=== PATIENT | male | born 1945 | race Caucasian/White ===

== ENCOUNTER 2017-09-04 13:32 | Observation (INO) | payer MEDICARE ==
[2017-09-04 13:58] LABS: #Eosinphils 0.2 thou/uL (0.0-0.7); #Lymphocytes 2.9 thou/uL (1.20-3.40); #Monocytes 0.7 thou/uL (0.11-0.59); #Neutrophils 4.7 thou/uL (1.40-6.50); %Basophils 0.3 % (0.0-1.0); %Eosinophils 2.3 % (0.0-10.0); %Lymphocytes 33.9 % (21.0-51.0); %Neutrophils 55.4 % (42.0-75.0); Hemoglobin 14.1 g/dL (14.0-18.0); Mean Corpuscular HGB CONC 33.7 g/dL (32.0-36.0); Mean Corpuscular Hemoglobin 29.1 pg (27.0-31.0); Mean Corpuscular Volume 86.4 fl (80.0-94.0); Mean Platelet Volume 6.6 fL (7.4-10.4); Platelet Count 285 thou/uL (130-400); RBC Distribution Width 13.2 % (11.5-14.5); Red Blood Cell (RBC) Count 4.83 mill/uL (4.70-6.10); White Blood Cell (WBC) Count 8.4 thou/uL (4.8-10.8)
--- NOTE | 2017-09-04 14:14 | RAD ---
CHEST 1 VIEW: Date: 09/04/17 HISTORY: Chest pain. COMPARISON: Chest 1 view dated 12/22/13. FINDINGS: Lungs are clear. No pneumothorax or effusion. Cardiac silhouette and mediastinal contours within norm al limits. No acute osseous abnormality. IMPRESSION: No acute intrathoracic abnormality. POS: GUICHO
[2017-09-04 14:20] LABS: ALT (SGPT) 41 U/L (8-55); AST (SGOT) 37 U/L (5-34); Albumin 4.7 g/dL (3.4-4.8); Alkaline Phosphatase 79 U/L (40-150); Anion Gap 13 mmol/L (10-20); BUN (Urea Nitrogen) 20 mg/dL (8.4-25.7); Bilirubin, Total 0.5 mg/dL (0.2-1.2); CK (CPK) 78 U/L (30-200); Calc. Creatinine Clearance 0 mL/min (70-130); Calcium 10.2 mg/dL (7.8-10.44); Carbon Dioxide 26 mmol/L (23-31); Chloride 103 mmol/L (98-107); Estimated GFR-MDRD 60; Globulin 3.4 g/dL (2.4-3.5); Glucose 124 mg/dL (83-110); Potassium 4.3 mmol/L (3.5-5.1); Protein, Total 8.1 g/dL (5.8-8.1); Sodium 138 mmol/L (136-145)
[2017-09-04 14:25] LABS: CKMB 1.2 ng/mL (0-6.6); Troponin I Less than 0.010 ng/mL (< 0.028)
[2017-09-04] MEDS ORDERED: Metoprolol Tartrate 5 MG/5 ML VIAL ONE (15:44)
[2017-09-04] MEDS ORDERED: Bisacodyl 5 MG TAB PO PRN (17:47)
[2017-09-04] MEDS ORDERED: Ondansetron ODT 4 MG TAB PO PRN (17:47)
[2017-09-04] MEDS ORDERED: Acetaminophen 650 MG Suppository PR PRN (17:47)
[2017-09-04] MEDS ORDERED: Ondansetron HCl/PF 4 MG/2 ML Vial IVP PRN (17:47)
[2017-09-04] MEDS ORDERED: Acetaminophen 325 MG TAB PO PRN (17:47)
[2017-09-04 17:50] LABS: Troponin I Less than 0.010 ng/mL (< 0.028)
[2017-09-04 18:11] VITALS: BMI 34.0
--- NOTE | 2017-09-04 18:24 | HP ---
PRIMARY CARE PHYSICIAN: West Harris M.D. CHIEF COMPLAINT: Palpitations and weakness. HISTORY OF PRESENT ILLNESS: This is a 72-year-old white male with a known history of paroxysmal atri al fibrillation. Over the last 10 years or so, he does have about 3 episodes of the atrial fibrillat ion. He had to be admitted once or twice for it in the past. He typically when he gets these episod es, they will resolve spontaneously in the next few hours. The patient developed palpitations and we akness along with lightheadedness. He is complaining like he is going to pass out about 3 days ago. The lightheadedness has improved, though still there. He feels quite weak and continues to feel pal pitations, so he came into the hospital today. In the ER, he was found to be in atrial fibrillation and initially with some heart rate up into the 120s, though without medication it is now stabilized b etween 80s to 100s. Diltiazem drip was considered in the emergency room; however, the hospital is ou t of IV diltiazem, so he has not received any medications yet. PAST MEDICAL HISTORY: 1. Paroxysmal atrial fibrillation. 2. Waldenstrom's macroglobulinemia. 3. B-cell lymphoma. 4. Anemia. 5. Skin cancer. 6. Hyperlipidemia. 7. Hypertension. 8. 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 PAST SURGICAL HISTORY: 1. Coronary artery bypass grafting 4-vessel. 2. Tumor removal from esophagus in 04/2017. 3. Two stents in descending aorta. 4. Aneurysm surgery. 5. Remote laparoscopic Francisca fundoplication. 6. Pacemaker insertion. 7. Right endarterectomy. 8. Appendectomy. SOCIAL HISTORY: Previous tobacco use, quit 11 years ago. Social alcohol use only. No drug use. FAMILY HISTORY: Father in his 60s of lung cancer. Mother in her late 80s of natur al causes. Two sisters with diabetes. ALLERGIES: No known drug allergies. CURRENT MEDICATIONS: 1. Cartia XT 180 mg daily. 2. Gemfibrozil 600 mg twice a day. 3. Valsartan/hydrochlorothiazide 160/12.5 mg daily. 4. Metoprolol ER 50 mg daily. 5. Eliquis 5 mg twice a day. 6. Ezetimibe 10 mg daily. 7. Olmstead 3 capsule 1 gram twice a day. 8. Prilosec 20 mg daily. 9. B vitamin supplement 1 tablet daily. REVIEW OF SYSTEMS: Constitutional: No fevers, no chills. Eyes: No double vision or unusual blurre d vision. He does have some chronic vision difficulties from cataracts. ENT: No congestion, draina ge or sore throat. He has had some nasal and sinus congestions ever since he developed his recurrent atrial fibrillation 3 days ago. Pulmonary: He has some mild coughing, but nothing real significant . Cardiovascular: See HPI. No chest pain. Gastrointestinal: No abdominal pain, no nausea, vomiti ng, no diarrhea or constipation. Genitourinary: No dysuria or hematuria. Musculoskeletal: He has some chronic joint pains, but no unusual muscle aches or new arthritis problems. Skin: No rashes or lesions. Neurologic: No numbness, tingling or focal weakness. PHYSICAL EXAMINATION: VITAL SIGNS: Blood pressure 116/66, pulse 89, respirations 18, O2 sat 95% on room air, temperature 9 7.7. GENERAL: This is a well-developed, obese white male, in no apparent distress. HEENT: Pupils equal, round, and reactive to light. Oropharynx is clear without lesions, erythema, o r exudate. NECK: Supple, no lymphadenopathy, no thyroid nodules or enlargement, no JVD. HEART: Irregularly irregular rhythm, no tachycardia and no murmurs. LUNGS: Clear to auscultation bilaterally, no wheezes, crackles or rhonchi. ABDOMEN: Soft, nontender to palpation, normoactive bowel sounds, no hepatosplenomegaly or other mass es. EXTREMITIES: No clubbing, cyanosis or edema. SKIN: No rashes or other lesions noted. NEUROLOGIC: Cranial nerves intact and equal bilaterally. No facial droop. An intact deep tendon re flexes in all extremities. LABORATORY DATA: CBC within normal limits. Complete metabolic panel within normal limits except for an AST of 37. Cardiac marker set negative x1. IMAGING: EKG: I did review the EKG done in the emergency room and shows atrial fibrillation with co ntrolled rate. Chest x-ray: I did review the chest x-ray done in the emergency room along with the radiologist's report, this does show no evidence of pulmonary edema or acute intrathoracic abnormalit y. ASSESSMENT AND PLAN: 1. Paroxysmal atrial fibrillation, now in sustained atrial fibrillation that is symptomatic. The sanjana srivastava is not tachycardic at this time, so hold off on adding any new medications, though I will shabbir nue his rate control medications from home. I have spoken with Dr. Najera about the patient and he w ants to watch him on the monitor overnight and if he is remains in atrial fibrillation this symptomat ic tomorrow morning, he can do a cardioversion. We will continue patient's Eliquis as well to preven t clot formation to allow safe cardioversion in the morning. 2. Hypertension. Resume home antihypertensives. 3. Hyperlipidemia. Resume the patient's gemfibrozil and Zetia. 4. Gastrointestinal prophylaxis. We will resume the patient's PPI. 5. Deep venous thrombosis prophylaxis. We will continue the patient's blood thinners. 6. Code status. I did discuss this with the patient, he is a FULL CODE. Should he be incapacitated , his , Cece Foster would be his medical power of finance attorney.
[2017-09-04] MEDS ORDERED: Dronedarone HCl 400 MG TAB PO SCH (19:00)
[2017-09-04] MEDS: Apixaban 5 MG TAB PO SCH (19:29)
[2017-09-04] MEDS: Docusate 100 MG CAP PO SCH (19:29)
[2017-09-04 20:53] LABS: Troponin I Less than 0.010 ng/mL (< 0.028)
[2017-09-05 05:10] LABS: #Basophils 0.1 thou/uL (0.0-0.2); #Eosinphils 0.3 thou/uL (0.0-0.7); #Lymphocytes 3.1 thou/uL (1.20-3.40); #Monocytes 0.8 thou/uL (0.11-0.59); %Basophils 0.6 % (0.0-1.0); %Eosinophils 3.9 % (0.0-10.0); %Lymphocytes 37.4 % (21.0-51.0); %Monocytes 9.4 % (0.0-10.0); %Neutrophils 48.7 % (42.0-75.0); Hemoglobin 12.9 g/dL (14.0-18.0); Mean Corpuscular HGB CONC 32.8 g/dL (32.0-36.0); Mean Corpuscular Hemoglobin 28.4 pg (27.0-31.0); Mean Corpuscular Volume 86.6 fl (80.0-94.0); Mean Platelet Volume 6.8 fL (7.4-10.4); Platelet Count 240 thou/uL (130-400); RBC Distribution Width 13.3 % (11.5-14.5); Red Blood Cell (RBC) Count 4.54 mill/uL (4.70-6.10); White Blood Cell (WBC) Count 8.3 thou/uL (4.8-10.8)
[2017-09-05 05:24] LABS: Anion Gap 12 mmol/L (10-20); BUN (Urea Nitrogen) 17 mg/dL (8.4-25.7); Calc. Creatinine Clearance 101 mL/min (70-130); Calcium 9.4 mg/dL (7.8-10.44); Carbon Dioxide 26 mmol/L (23-31); Chloride 102 mmol/L (98-107); Estimated GFR-MDRD 75; Glucose 113 mg/dL (83-110); Potassium 3.5 mmol/L (3.5-5.1); Sodium 136 mmol/L (136-145)
--- NOTE | 2017-09-05 06:11 | CON ---
DATE OF CONSULTATION: 09/04/2017 PRIMARY IT SECURITY ARCHITECT: Dr. Grzegorz Hernandez. REASON FOR CONSULTATION: Atrial fibrillation. HISTORY OF PRESENT ILLNESS: Mr. Ronaldo Foster is a very delightful 72-year-old gentleman with history o f coronary artery disease and paroxysmal atrial fibrillation. The patient has had paroxysmal atrial fibrillation and has been started on Xarelto and subsequently changed to Eliquis. He said as of Frid ay he started noticing his pulse is irregular. He just did not seem to be able to get a good deep br eath and felt a little more short of breath when he lay down and he could feel the irregularity of hi s rhythm. He had no chest pain, no shortness of breath with exertion. He said "it did not straighte n out so I came to the emergency room". PAST MEDICAL HISTORY: 1. Hypertension. 2. Paroxysmal atrial fibrillation. 3. Previous pacemaker insertion. 4. Previous bypass surgery. MEDICATIONS PRIOR TO ADMISSION: 1. Metoprolol 25 mg a day. 2. Prilosec. 3. Gemfibrozil. 4. Webb 3 fatty acid. 5. Valsartan HCT. 6. Zetia. 7. Apixaban. 8. Diltiazem. ALLERGIES: None known. SOCIAL HISTORY: No alcohol or tobacco abuse. REVIEW OF SYSTEMS: Constitutional: No significant weight gain or loss. Vision: No changes. Heari ng: No changes. Pulmonary: No cough or wheezing. Gastrointestinal: No nausea, vomiting, or diarr hea. Skin: No rashes. Neurologic: No unilateral weakness or numbness. Psychiatric: No unusual d epression or anxiety. Hematologic: No unusual bruising. Genitourinary: No burning with urination. PHYSICAL EXAMINATION: GENERAL: This is a pleasant 72-year-old gentleman, resting comfortably in no distress. VITAL SIGNS: Blood pressure 129/72, pulse 78, it is irregular. EYES: Sclerae nonicteric. MOUTH: Mucous membranes are moist. NECK: Supple, no lymphadenopathy. LUNGS: Clear anteriorly and laterally. CARDIAC: Irregularly irregular. No murmur, rub or gallop. ABDOMEN: Soft, nontender, no hepatosplenomegaly. EXTREMITIES: Warm and dry. No clubbing, no cyanosis or edema. PSYCHIATRIC: Mood and affect normal. NEUROLOGIC: Grossly normal. SKIN: Warm and dry. LABORATORY AND X-RAY FINDINGS: Hemoglobin 14.1, hematocrit 41.7, glucose is 124. Troponin levels we re negative. EKG reveals atrial fibrillation. ASSESSMENT: 1. Previous coronary artery bypass grafting. 2. Atrial fibrillation, symptomatic. 3. Ejection fraction of 60% on stress testing in 05/2016. 4. Hypertension, controlled. PLAN: Recommend the patient to undergo cardioversion since he has been on Eliquis twice a day for ov er a month. Transesophageal echo is not indicated. Prior to that, he was also on Xarelto, discussed risk of cardioversion including stroke. Also, we would like to have the pacemaker outside industrial sales representative av ailable in case of adjustments need to be made in the device. The patient understands and wishes to proceed tomorrow morning. In the meantime, we will also start Multaq.
[2017-09-05] MEDS ORDERED: Dronedarone HCl 400 MG TAB PO SCH (08:00)
[2017-09-05] MEDS: Apixaban 5 MG TAB PO SCH (08:36)
[2017-09-05] MEDS: Docusate 100 MG CAP PO SCH (08:36)
[2017-09-05] MEDS ORDERED: Valsartan 80 MG TAB PO SCH (09:00)
[2017-09-05] MEDS ORDERED: Hydrochlorothiazide 25 MG TAB PO SCH (09:00)
[2017-09-05] MEDS ORDERED: Diprivan 20 ML ONE (09:07)
[2017-09-05 10:47] VITALS: BP 147/67; TEMP 98.3
--- NOTE | 2017-09-05 14:10 | DIS ---
DATE OF ADMISSION: 09/04/2017 DATE OF DISCHARGE: 09/05/2017 PRIMARY CARE PHYSICIAN: West Harris M.D. DISCHARGE DIAGNOSES: 1. Paroxysmal atrial fibrillation, now persistent. 2. Essential hypertension. 3. Hyperlipidemia. 4. Status post direct current cardioversion. CONSULTATIONS: Cardiology, Dr. Junior Najera. PROCEDURES: DC cardioversion 09/05/2017 with successful cardioversion. HISTORY AND PHYSICAL: Mr. Foster is a 72-year-old white male with a history of paroxysmal atrial fib rillation who usually spontaneously converts between atrial fibrillation and sinus. He remained in a trial fibrillation with palpitations for 2-3 days and so presented to the emergency room for evaluati on. He was found to be in persistent fibrillation, he was placed in observation overnight and Cardiology consulted. HOSPITAL COURSE: The patient seen and examined by Dr. Sedrick Pat. The patient was placed in observat ion, Cardiology was consulted. He was kept n.p.o. after midnight and plans were for DC cardioversion with discharge home in the morning if he did well. Overnight, he remained in atrial fibrillation. He was taken to the cardiac laboratory technician on 09/05/2017 an d underwent discontinue cardioversion after starting Multaq. Cardioversion was successful, he was cl eared for discharge with outpatient followup. PHYSICAL EXAMINATION: The patient was seen and examined on the day of discharge. Discharge plan and disposition was discussed with the patient face to face at the bedside. DISCHARGE MEDICATIONS: 1. Eliquis 5 mg p.o. b.i.d. 2. Cartia XT 180 mg p.o. daily. 3. Multaq 400 mg p.o. b.i.d. 4. Zetia 10 mg daily. 5. Multivitamin 1 p.o. b.i.d. 6. Gemfibrozil 600 mg p.o. b.i.d. 7. Metoprolol tartrate 50 mg p.o. daily. 8. Metoprolol succinate. 9. Lovaza 4 grams p.o. daily. 10. Prilosec 20 mg daily. 11. Valsartan/HCTZ 160/12.5 daily. 12. Vitamin B complex 1 daily. FOLLOWUP APPOINTMENTS: 1. Primary care physician in [address] Hernandez within a week. DISCHARGE ACTIVITY: Per cardiopulmonary limits. DISCHARGE DIET: Heart healthy recommended. DISCHARGE CONDITION: Stable. DISPOSITION: Will be discharged via private vehicle.
[2017-09-05] MEDS ORDERED: Propofol 200 MG/20 ML VIAL ONE (17:20)
[2017-09-05] MEDS ORDERED: Lidocaine 1% PF 5 ML VIAL ONE (17:20)
== END 2017-09-05 11:59 | disposition home or self-care (01) ==
LOC: ERS 13:32 → 2SW 15:36
PROVIDERS: ADMIT Emergency Medicine; ATTEND Emergency Medicine
DX: I48.1 Persistent atrial fibrillation (principal); I10 Essential (primary) hypertension; E78.5 Hyperlipidemia, unspecified; C88.0 Waldenstrom macroglobulinemia; C44.90 Unspecified malignant neoplasm of skin, unspecified; I25.10 Atherosclerotic heart disease of native coronary artery without angina pectoris; Z79.01 Long term (current) use of anticoagulants; Z79.899 Other long term (current) drug therapy; Z95.0 Presence of cardiac pacemaker; Z95.1 Presence of aortocoronary bypass graft; Z98.890 Other specified postprocedural states; Z80.1 Family history of malignant neoplasm of trachea, bronchus and lung; Z87.891 Personal history of nicotine dependence
CPT/HCPCS: 71045; 80048; 80053; 82550; 82553; 84484 ×2; 85025 ×2; 92960; 93005; 94760; 96361; 96374; 99291; G0378; 36415; J2001; J2704

== ENCOUNTER 2018-07-02 11:04 | Outpatient (CLI) | payer MEDICARE ==
[2018-07-02 12:33] LABS: Hemoglobin 14.2 g/dL (14.0-18.0); Mean Corpuscular HGB CONC 34.2 g/dL (32.0-36.0); Mean Corpuscular Hemoglobin 30.4 pg (27.0-31.0); Mean Corpuscular Volume 88.8 fL (78.0-98.0); Mean Platelet Volume 7.1 fL (7.4-10.4); Platelet Count 282 thou/uL (130-400); RBC Distribution Width 12.2 % (11.5-14.5); Red Blood Cell (RBC) Count 4.67 mill/uL (4.70-6.10)
[2018-07-02 12:42] LABS: INR-International Normal Ratio 1.4; PTT 48.1 SEC (22.9-36.1); Prothrombin Time 16.9 SEC (12.0-14.7)
[2018-07-02 12:44] LABS: ALT (SGPT) 27 U/L (8-55); AST (SGOT) 25 U/L (5-34); Albumin 4.9 g/dL (3.4-4.8); Alkaline Phosphatase 68 U/L (40-150); Anion Gap 14 mmol/L (10-20); BUN (Urea Nitrogen) 20 mg/dL (8.4-25.7); Bilirubin, Total 0.7 mg/dL (0.2-1.2); Calc. Creatinine Clearance 0 mL/min (70-130); Calcium 10.1 mg/dL (7.8-10.44); Carbon Dioxide 24 mmol/L (23-31); Chloride 102 mmol/L (98-107); Estimated GFR-MDRD 70; Globulin 3.7 g/dL (2.4-3.5); Glucose 104 mg/dL (83-110); Potassium 4.2 mmol/L (3.5-5.1); Protein, Total 8.6 g/dL (5.8-8.1); Sodium 136 mmol/L (136-145)
== END 2018-07-02 11:05 | disposition home or self-care (01) ==
LOC: LABBT 11:04
PROVIDERS: ATTEND Internal Medicine Cardiovascular Disease
DX: Z01.812 Encounter for preprocedural laboratory examination (principal)
CPT/HCPCS: 80053; 85027; 85610; 85730

== ENCOUNTER 2018-07-09 05:56 | Day surgery (SDC) | payer MEDICARE ==
[2018-07-02 11:37] VITALS: BMI 34.1
[2018-07-09] MEDS ORDERED: Lidocaine 1% (PF) 30 ML VIAL ONE (07:10)
[2018-07-09] MEDS ORDERED: Diazepam 5 MG TAB ONE (07:39)
[2018-07-09] MEDS ORDERED: Diazepam 5 MG TAB PO SCH (07:45)
[2018-07-09] MEDS ORDERED: Sodium Chloride 0.9% 1,000 ML IV SCH (07:45)
--- NOTE | 2018-07-13 20:15 | EKG ---
Test Reason : PREOP Blood Pressure : / mmHG Vent. Rate : 063 BPM Atrial Rate : 063 BPM P-R Int : 250 ms QRS Dur : 120 ms QT Int : 464 ms P-R-T Axes : 013 -44 003 degrees QTc Int : 474 ms Electronic atrial pacemaker Left axis deviation Non-specific intra-ventricular conduction delay Abnormal ECG When compared with ECG of 04-SEP-2017 13:39, Electronic atrial pacemaker has replaced Atrial fibrillation Vent. rate has decreased BY 33 BPM Non-specific intra-ventricular conduction delay has replaced Incomplete right bundle branch block Confirmed by Shan FONG ([id number]) on 07/13/2018 8:15:23 PM Referred By: LAURA Confirmed By:Shan FONG
== END 2018-07-09 17:39 | disposition home or self-care (01) ==
LOC: CCL 05:56
PROVIDERS: ATTEND Internal Medicine Cardiovascular Disease
DX: I25.729 Atherosclerosis of autologous artery coronary artery bypass graft(s) with unspecified angina pectoris (principal); I48.0 Paroxysmal atrial fibrillation; E78.2 Mixed hyperlipidemia; I10 Essential (primary) hypertension; E78.00 Pure hypercholesterolemia, unspecified; E66.9 Obesity, unspecified; Z53.9 Procedure and treatment not carried out, unspecified reason; Z68.34 Body mass index [BMI] 34.0-34.9, adult; Z86.73 Personal history of transient ischemic attack (TIA), and cerebral infarction without residual deficits; Z87.891 Personal history of nicotine dependence; Z79.01 Long term (current) use of anticoagulants; Z79.82 Long term (current) use of aspirin; Z79.899 Other long term (current) drug therapy; Z95.0 Presence of cardiac pacemaker; Z95.1 Presence of aortocoronary bypass graft; Z88.8 Allergy status to other drugs, medicaments and biological substances
CPT/HCPCS: 93005; 93010; J1644; J2001

== ENCOUNTER 2018-07-24 06:43 | Outpatient (CLI) | payer MEDICARE ==
[2018-07-24 12:50] LABS: #Eosinphils 0.1 thou/uL (0.0-0.7); #Lymphocytes 2.8 thou/uL (1.20-3.40); #Monocytes 0.7 thou/uL (0.11-0.59); %Basophils 0.1 % (0.0-1.0); %Eosinophils 1.9 % (0.0-10.0); %Lymphocytes 36.7 % (21.0-51.0); %Monocytes 8.8 % (0.0-10.0); %Neutrophils 52.5 % (42.0-75.0); Hemoglobin 13.8 g/dL (14.0-18.0); Mean Corpuscular HGB CONC 34.4 g/dL (32.0-36.0); Mean Corpuscular Hemoglobin 30.8 pg (27.0-31.0); Mean Corpuscular Volume 89.7 fL (78.0-98.0); Mean Platelet Volume 7.5 fL (7.4-10.4); Platelet Count 265 thou/uL (130-400); Red Blood Cell (RBC) Count 4.47 mill/uL (4.70-6.10); White Blood Cell (WBC) Count 7.7 thou/uL (4.8-10.8)
[2018-07-24 12:55] LABS: INR-International Normal Ratio 1.3; Prothrombin Time 16.1 SEC (12.0-14.7)
[2018-07-24 12:56] LABS: PTT 37.8 SEC (22.9-36.1)
[2018-07-24 13:20] LABS: ALT (SGPT) 25 U/L (8-55); AST (SGOT) 21 U/L (5-34); Albumin 4.7 g/dL (3.4-4.8); Alkaline Phosphatase 80 U/L (40-150); Anion Gap 15 mmol/L (10-20); BUN (Urea Nitrogen) 23 mg/dL (8.4-25.7); Bilirubin, Total 0.5 mg/dL (0.2-1.2); Calc. Creatinine Clearance 0 mL/min (70-130); Calcium 10.1 mg/dL (7.8-10.44); Carbon Dioxide 23 mmol/L (23-31); Chloride 105 mmol/L (98-107); Estimated GFR-MDRD 70; Globulin 2.7 g/dL (2.4-3.5); Glucose 103 mg/dL (83-110); Potassium 4.2 mmol/L (3.5-5.1); Protein, Total 7.4 g/dL (5.8-8.1); Sodium 139 mmol/L (136-145)
== END 2018-07-24 06:44 | disposition home or self-care (01) ==
LOC: LABBT 06:43
PROVIDERS: ATTEND Internal Medicine Cardiovascular Disease
DX: Z01.812 Encounter for preprocedural laboratory examination (principal); I20.9 Angina pectoris, unspecified
CPT/HCPCS: 80053; 85025; 85610; 85730

== ENCOUNTER 2018-07-27 11:14 | Inpatient (IN) | payer MEDICARE ==
[2018-07-27] MEDS ORDERED: Heparin 10,000 UNITS/1 ML VIAL ONE (12:11)
[2018-07-27] MEDS ORDERED: Nitroglycerin 100MG/250ML BOT 0 ML ONE (12:11)
[2018-07-27] MEDS ORDERED: Verapamil 5 MG/2 ML VIAL ONE (12:11)
[2018-07-27] MEDS ORDERED: Midazolam HCl 2 mg/2 ml Vial ONE (12:26)
[2018-07-27] MEDS ORDERED: Fentanyl 100 MCG/2 ML VIAL ONE (12:27)
[2018-07-27 13:22] LABS: Cardiac Risk 4.6 (Less than 4.5)
[2018-07-27 14:25] VITALS: BP 136/68; TEMP 97.4; BMI 33.7
[2018-07-27] MEDS ORDERED: Nitroglycerin 4.9 GM Bottle SL PRN (15:01)
--- NOTE | 2018-07-27 15:29 | CON ---
DATE OF CONSULTATION: HISTORY OF PRESENT ILLNESS: The patient is a pleasant 73-year-old gentleman with a history of coronary artery disease, who was admitted for further cardiac evaluation. The patient was found in 2006 to have severe coronary artery disease, subsequently underwent coronary artery bypass graft surgery x4 and a PELAEZ was placed to the LAD, a left radial graft to the first diagonal, saphenous vein graft to the OM and PDA. The patient also developed syncope after placement of electronic pacemaker. The patient also has a history of paroxysmal atrial fibrillation on chronic medical therapy. The patient today underwent a cardiac catheterization and found to have extensive coronary artery disease, admitted for further evaluation. The patient denies having any chest discomfort. PAST MEDICAL HISTORY: 1. Coronary artery disease. 2. Hypertension. 3. Dyslipidemia. 4. B-cell lymphoma. 5. History of CVA. 6. GE reflux. PAST SURGICAL HISTORY: Coronary artery bypass surgery, appendectomy ,carotid endarterectomy and hernia repair. SOCIAL HISTORY: Nonsmoker. ALLERGIES: LIPITOR. PHYSICAL EXAMINATION: GENERAL: Well-developed gentleman in no acute distress. VITAL SIGNS: Blood pressure was 136/68. NECK: No jugular venous distention. LUNGS: Clear to auscultation. HEART: Regular rate and rhythm. Normal S1, S2. 1/6 systolic murmur. ABDOMEN: Nondistended. EXTREMITIES: Showed trace edema. LABORATORY DATA: Laboratory results pending. IMPRESSION: 1. Severe coronary artery disease. 2. History of coronary artery bypass surgery x4. 3. Hypertension. 4. Dyslipidemia. 5. History of pacemaker placement. 6. History of paroxysmal atrial fibrillation. 7. History of B-cell lymphoma. 8. History of cerebrovascular accident. This gentleman has extensive coronary artery disease. I have recommended that the patient to be transferred to [facility] for evaluation for a possible repeat high risk bypass surgery. PLAN: Transfer to [facility] in [place]. Job ID: [id number] MTDD
[2018-07-27] MEDS ORDERED: Nitroglycerin 0.4 MG TAB (25 Tab Bottle) SL PRN (16:58)
[2018-07-27] MEDS ORDERED: traMADol HCl 50 MG TAB PO PRN (16:58)
[2018-07-27] MEDS ORDERED: Acetaminophen/Codeine 30-300mg Tablet PO PRN ×2 (16:58)
[2018-07-27] MEDS ORDERED: ICOSAPENT ETHYL PO SCH (17:00)
[2018-07-27] MEDS ORDERED: Sodium Chloride 0.9% 1,000 ML IV SCH (17:00)
[2018-07-27] MEDS ORDERED: Dronedarone HCl 400 MG TAB PO SCH (21:00)
[2018-07-27] MEDS ORDERED: Apixaban 5 MG TAB PO SCH (21:00)
[2018-07-28] MEDS ORDERED: Ezetimibe 10 MG TAB PO SCH (09:00)
[2018-07-28] MEDS ORDERED: Hydrochlorothiazide 25 MG TAB PO SCH (09:00)
[2018-07-28] MEDS ORDERED: Prenatal Vitamin 1 TAB PO SCH (09:00)
[2018-07-28] MEDS ORDERED: Metoprolol Tartrate 50 MG TAB PO SCH (09:00)
== END 2018-07-27 19:09 | disposition short-term general hospital (02) | DRG 287 ==
LOC: CCL 11:14 → 2NO 14:11
PROVIDERS: ADMIT Internal Medicine Cardiovascular Disease; ATTEND Internal Medicine Cardiovascular Disease
PROC: 4A023N7 Measurement of Cardiac Sampling and Pressure, Left Heart, Percutaneous Approach (ICD-10-PCS; principal; 2018-07-27)
PROC: B2131ZZ Fluoroscopy of Multiple Coronary Artery Bypass Grafts using Low Osmolar Contrast (ICD-10-PCS; 2018-07-27)
PROC: B4101ZZ Fluoroscopy of Abdominal Aorta using Low Osmolar Contrast (ICD-10-PCS; 2018-07-27)
DX: I25.719 Atherosclerosis of autologous vein coronary artery bypass graft(s) with unspecified angina pectoris (principal); C85.10 Unspecified B-cell lymphoma, unspecified site; I25.82 Chronic total occlusion of coronary artery; I48.0 Paroxysmal atrial fibrillation; I10 Essential (primary) hypertension; E78.2 Mixed hyperlipidemia; K21.9 Gastro-esophageal reflux disease without esophagitis; E66.9 Obesity, unspecified; Z68.33 Body mass index [BMI] 33.0-33.9, adult; Z86.73 Personal history of transient ischemic attack (TIA), and cerebral infarction without residual deficits; Z95.1 Presence of aortocoronary bypass graft; Z95.0 Presence of cardiac pacemaker; Z88.8 Allergy status to other drugs, medicaments and biological substances; Z95.820 Peripheral vascular angioplasty status with implants and grafts; Z79.899 Other long term (current) drug therapy; Z79.01 Long term (current) use of anticoagulants
CPT/HCPCS: 36215; 36415; 75630; 80053; 80061; 85025; 85610; 85730; 93459; 99152; 99153; C1769; J1644; J2250; J3010

== ENCOUNTER → 2018-12-04 | Day surgery (SDC) | payer MEDICARE ==
[2018-12-03 08:33] VITALS: BMI 33.7
[2018-12-04 06:37] LABS: #Eosinphils 0.1 thou/uL (0.0-0.7); #Lymphocytes 2.5 thou/uL (1.20-3.40); #Monocytes 0.7 thou/uL (0.11-0.59); #Neutrophils 4.5 thou/uL (1.40-6.50); %Basophils 0.5 % (0.0-1.0); %Eosinophils 1.7 % (0.0-10.0); %Lymphocytes 31.3 % (21.0-51.0); %Monocytes 9.3 % (0.0-10.0); %Neutrophils 57.3 % (42.0-75.0); Hemoglobin 13.3 g/dL (14.0-18.0); Mean Corpuscular HGB CONC 34.3 g/dL (32.0-36.0); Mean Corpuscular Hemoglobin 30.2 pg (27.0-31.0); Mean Corpuscular Volume 88.1 fL (78.0-98.0); Mean Platelet Volume 6.7 fL (7.4-10.4); Platelet Count 208 thou/uL (130-400); RBC Distribution Width 12.9 % (11.5-14.5); Red Blood Cell (RBC) Count 4.39 mill/uL (4.70-6.10); White Blood Cell (WBC) Count 7.9 thou/uL (4.8-10.8)
[2018-12-04 06:44] LABS: INR-International Normal Ratio 1.2; Prothrombin Time 15.3 SEC (12.0-14.7)
[2018-12-04 06:45] LABS: PTT 40.8 SEC (22.9-36.1)
[2018-12-04 07:01] LABS: Anion Gap 14 mmol/L (10-20); BUN (Urea Nitrogen) 21 mg/dL (8.4-25.7); Calc. Creatinine Clearance 84 mL/min (70-130); Calcium 9.1 mg/dL (7.8-10.44); Carbon Dioxide 24 mmol/L (23-31); Chloride 104 mmol/L (98-107); Estimated GFR-MDRD 62; Glucose 118 mg/dL (83-110); Potassium 3.7 mmol/L (3.5-5.1); Sodium 138 mmol/L (136-145)
--- NOTE | 2018-12-04 12:25 | OP ---
DATE OF PROCEDURE: 12/04/2018 PROCEDURE PERFORMED: Transesophageal echocardiogram. INDICATION: This is a 73-year-old gentleman with paroxysmal atrial fibrillation and a Watchman device. DESCRIPTION OF PROCEDURE: The patient was taken to the PACU. The patient was sedated by Anesthesiology. A transesophageal probe was placed into the distal esophagus and stomach. Echocardiographic images were obtained. The transesophageal probe was removed. FINDINGS: 1. Normal left ventricular systolic function. 2. Biatrial enlargement. 3. The right ventricle is dilated. 4. [id number] regurgitation. 5. Mild regurgitation. 6. The Watchman device is well positioned in the left atrial appendage with no significant leak noted. 7. Atherosclerotic debris in the descending aorta. 8. Patent foramen ovale. IMPRESSION: Watchman device well positioned in the left atrial appendage with no significant leak. Job ID: [id number]
== END ==
LOC: CCL 05:51
PROVIDERS: ATTEND Internal Medicine Cardiovascular Disease
PROC: B245ZZ4 Ultrasonography of Left Heart, Transesophageal (ICD-10-PCS; principal; 2018-12-04)
DX: I48.0 Paroxysmal atrial fibrillation (principal); I51.7 Cardiomegaly; I70.0 Atherosclerosis of aorta; Q21.1 Atrial septal defect; Z95.2 Presence of prosthetic heart valve; Z95.818 Presence of other cardiac implants and grafts
CPT/HCPCS: 80048; 85025; 85610; 85730; 93005; 93010; 93312

== ENCOUNTER 2019-08-16 10:03 | Outpatient (CLI) | payer MEDICARE ==
[2019-08-16 11:28] LABS: Hemoglobin 14.8 g/dL (14.0-18.0); Mean Corpuscular HGB CONC 35.2 g/dL (32.0-36.0); Mean Corpuscular Hemoglobin 32.7 pg (27.0-31.0); Mean Platelet Volume 7.5 fL (7.4-10.4); Platelet Count 181 thou/uL (130-400); RBC Distribution Width 12.2 % (11.5-14.5); Red Blood Cell (RBC) Count 4.54 mill/uL (4.70-6.10); White Blood Cell (WBC) Count 7.4 thou/uL (4.8-10.8)
[2019-08-16 11:36] LABS: INR-International Normal Ratio 1.2; PTT 39.5 SEC (22.9-36.1); Prothrombin Time 15.2 SEC (12.0-14.7)
[2019-08-16 11:55] LABS: Anion Gap 10 mmol/L (10-20); BUN (Urea Nitrogen) 14 mg/dL (8.4-25.7); Calc. Creatinine Clearance 0 mL/min (70-130); Calcium 9.7 mg/dL (7.8-10.44); Carbon Dioxide 25 mmol/L (23-31); Chloride 104 mmol/L (98-107); Estimated GFR-MDRD 63; Glucose 105 mg/dL (83-110); Potassium 4.3 mmol/L (3.5-5.1); Sodium 135 mmol/L (136-145)
== END 2019-08-16 10:04 | disposition home or self-care (01) ==
LOC: LABBT 10:03
PROVIDERS: ATTEND Internal Medicine Cardiovascular Disease
DX: Z01.818 Encounter for other preprocedural examination (principal); I48.91 Unspecified atrial fibrillation
CPT/HCPCS: 80048; 85027; 85610; 85730; 93005; 93010

== ENCOUNTER 2019-08-30 09:53 | Day surgery (SDC) | payer MEDICARE ==
[2019-08-16 10:24] VITALS: BMI 36.9
[2019-08-30] MEDS ORDERED: PROPOFOL 20 ML ONE (11:14)
[2019-08-30] MEDS ORDERED: PROPOFOL 200 MG/20 ML VIAL ONE (12:34)
--- NOTE | 2019-08-30 17:15 | OP ---
DATE OF PROCEDURE: 08/30/2019 PROCEDURE PERFORMED: Electrical cardioversion. REFERRING PHYSICIAN: . REASON FOR PROCEDURE: Mr. Foster is a 74-year-old gentleman with history of persistent atrial fibrillations, dual-chamber pacemaker implanted in the past, who also had a Watchman device implanted. He was started on Eliquis and currently he is on Multaq 400 twice a day. He is here for a planned cardioversion. DESCRIPTION OF PROCEDURE: The patient received propofol by Anesthesia specialist. After adequate level of sedation achieved, a synchronized 200-joule shock promptly converted the patient back to sinus rhythm. The patient tolerated the procedure well. No complications noted. CONCLUSION: Successful cardioversion. PLAN: Continue short-term Eliquis, we can consider stopping it next visit. Follow up in about four weeks. In the meantime, we will continue Multaq. If recurrent atrial fibrillation is seen, could consider more potent antiarrhythmic like amiodarone versus ablation. Job ID: [id number]
== END 2019-08-30 13:18 | disposition home or self-care (01) ==
LOC: CCL 09:53
PROVIDERS: ATTEND Internal Medicine Cardiovascular Disease
PROC: 5A2204Z Restoration of Cardiac Rhythm, Single (ICD-10-PCS; principal; 2019-08-30)
DX: I48.19 Other persistent atrial fibrillation (principal); I10 Essential (primary) hypertension; I25.10 Atherosclerotic heart disease of native coronary artery without angina pectoris; E78.5 Hyperlipidemia, unspecified; K21.9 Gastro-esophageal reflux disease without esophagitis; J44.9 Chronic obstructive pulmonary disease, unspecified; G47.33 Obstructive sleep apnea (adult) (pediatric); I73.9 Peripheral vascular disease, unspecified; Z79.01 Long term (current) use of anticoagulants; Z79.82 Long term (current) use of aspirin; Z79.899 Other long term (current) drug therapy; Z85.01 Personal history of malignant neoplasm of esophagus; Z85.72 Personal history of non-Hodgkin lymphomas; Z85.830 Personal history of malignant neoplasm of bone; Z87.442 Personal history of urinary calculi; Z87.891 Personal history of nicotine dependence; Z88.8 Allergy status to other drugs, medicaments and biological substances; Z90.49 Acquired absence of other specified parts of digestive tract; Z95.0 Presence of cardiac pacemaker; Z95.1 Presence of aortocoronary bypass graft; Z95.5 Presence of coronary angioplasty implant and graft
CPT/HCPCS: 92960; J2704

== ENCOUNTER 2020-02-14 07:44 | Outpatient (CLI) | payer MEDICARE, OTHER ==
[2020-02-15 14:02] LABS: SARS-CoV-2 MS2 Positive; SARS-CoV-2 N Gene Negative; SARS-CoV-2 S Gene Negative; SARS-CoV-2 by NAA Not Detected (NotDetected); SARS-CoV-2 orf1ab Negative
== END 2020-02-14 07:45 | disposition home or self-care (01) ==
LOC: LABBT 07:44
PROVIDERS: ATTEND Internal Medicine Gastroenterology
DX: K22.70 Barrett's esophagus without dysplasia (principal); R13.10 Dysphagia, unspecified; Z20.828 Contact with and (suspected) exposure to other viral communicable diseases; Z95.5 Presence of coronary angioplasty implant and graft; Z85.01 Personal history of malignant neoplasm of esophagus
CPT/HCPCS: 87635; U0003

== ENCOUNTER 2020-02-19 07:04 | Day surgery (SDC) | payer MEDICARE ==
[2020-02-14 14:05] VITALS: BMI 35.6
[2020-02-19] MEDS ORDERED: PROPOFOL 200 MG/20 ML VIAL ONE (10:17)
--- NOTE | 2020-02-19 11:00 | OP ---
DATE OF PROCEDURE: 02/19/2020 PROCEDURE PERFORMED: Esophagogastroduodenoscopy with Toledo dilatation. PREMEDICATION: Given by Anesthesiology Department. PREPROCEDURE DIAGNOSES: 1. Dysphagia to solids. 2. History of esophageal adenocarcinoma with Christian's, status post ablated therapy at [facility]. POSTPROCEDURE DIAGNOSES: 1. Lower esophageal stricture, mild. 2. Irregular Z-line at 40 cm. 3. Island of salmon-colored mucosa at 39 cm without any other visible abnormality. 4. Small hernia of loose fundoplication, otherwise normal stomach and duodenum. DESCRIPTION OF PROCEDURE: Written consents were obtained prior to procedure. After adequate sedation, the forward-viewing endoscope was advanced down the stomach under direct vision to the second portion of the duodenum. Both the second portion and the bulb appeared normal. The pylorus was patent. The gastric antrum, body, fundus, and cardia all appeared normal. A small hernia and very loose fundoplication were noted on retroflexion. The hernia narrowing is at 42 cm. The Z-line which appears to be irregular was noted at 40 cm. Scarring with a mild concentric stricture was noted in this area. A single island of salmon-colored mucosa was noted at 39 cm. There were no visible mucosal abnormalities seen. The mid and upper esophagus appeared normal. Dilation was then performed using a 50-Maltese Toledo. Repeat endoscopy did not show any mucosal disruption. Further dilatation was performed with 54-Maltese Toledo. Adequate mucosal disruption was seen. There was no immediate complication. The patient tolerated the procedure well. ASSESSMENT: 1. Lower esophageal stricture, status post dilatation with 50 and 54-Maltese Toledo. 2. Irregular Z-line at 40 cm with a single island of salmon-colored lining mucosa at 39 cm without any other visible abnormality. 3. Small hiatal hernia, otherwise normal upper endoscopy. RECOMMENDATION: 1. Pantoprazole 40 mg p.o. daily. 2. Follow up in the office in one month. 3. The patient will need eventual upper endoscopy at [facility] for possible further ablation. Job ID: [id number] [facility]
== END 2020-02-19 11:02 | disposition home or self-care (01) ==
LOC: SDC 07:04
PROVIDERS: ATTEND Internal Medicine Gastroenterology
PROC: 0D737ZZ Dilation of Lower Esophagus, Via Natural or Artificial Opening (ICD-10-PCS; principal; 2020-02-19)
PROC: 0DJ08ZZ Inspection of Upper Intestinal Tract, Via Natural or Artificial Opening Endoscopic (ICD-10-PCS; 2020-02-19)
DX: K22.2 Esophageal obstruction (principal); K44.9 Diaphragmatic hernia without obstruction or gangrene; I25.10 Atherosclerotic heart disease of native coronary artery without angina pectoris; I10 Essential (primary) hypertension; G47.33 Obstructive sleep apnea (adult) (pediatric); E78.5 Hyperlipidemia, unspecified; J44.9 Chronic obstructive pulmonary disease, unspecified; K21.9 Gastro-esophageal reflux disease without esophagitis; Z85.01 Personal history of malignant neoplasm of esophagus; Z85.830 Personal history of malignant neoplasm of bone; Z86.73 Personal history of transient ischemic attack (TIA), and cerebral infarction without residual deficits; Z87.891 Personal history of nicotine dependence; Z79.02 Long term (current) use of antithrombotics/antiplatelets; Z79.82 Long term (current) use of aspirin; Z79.899 Other long term (current) drug therapy; Z88.8 Allergy status to other drugs, medicaments and biological substances; Z95.1 Presence of aortocoronary bypass graft
CPT/HCPCS: J2704

== ENCOUNTER 2020-07-28 12:58 | Outpatient (CLI) | payer MEDICARE ==
[~2020-07-28 12:58] MED LIST: Iopamidol-370 76% 500 ML 1 ML ONE
--- NOTE | 2020-07-28 14:56 | CT ---
CT ANGIO OF ABDOMEN AND PELVIS AND LOWER EXTREMITIES PERFORMED WITH INTRAVENOUS CONTRAST ENHANCEMENT WITH 3D RECONSTRUCTIONS: 07/28/20 HISTORY: Bilateral lower extremity claudication symptoms, peripheral vascular disease. The lung bases are clear of any infiltrative process. Small hiatal hernia is noted. The liver and spleen are within normal limits of size. Pancreas and gal lbladder regions appear unremarkable. Right and left adrenal glands are normal. Right and left kidneys are normal in size. Hypodensity invo lving the left kidney is statistically most likely a cyst. No significant periaortic or mesenteric ad enopathy. There is moderate sigmoid diverticulosis. No pelvic lymphadenopathy or mass. An infrarenal aortic stent is in place. The stent terminates with limbs involving the right common il iac arteries. The infrarenal aorta is small. Presence of atherosclerotic change and the stent makes i t difficult to assess the lumen but at one point the lumen measures in the 11 mm range. There is cont rast through the stent. There is marked atherosclerotic calcification at the origin of both the right and left renal arteries with suggestion of some mild to moderate narrowing. There is also fairly adv anced plaque formation at the origin of the superior mesenteric artery and dense plaque at the origin of the celiac artery without definitive significant stenosis. The right lower extremity runoff shows moderately severe degree of stenosis at the distal end of the common iliac stent. There is contrast present. There is prominent atherosclerotic change of the inter nal iliac artery which is moderately narrowed. There is plaque along the course of the external iliac artery without significant stenosis. Dense calcified plaque at the level of the right common femora l artery associated with moderately severe stenosis. Difficult to assess due to the calcification. Th ere is dense plaque at the origin of the superficial femoral artery. The plaque makes it very difficu lt to assess the degree of stenosis but appears to be at least a moderately severe degree of narrowin g along the proximal superficial femoral artery. The profunda femoral artery is patent. Prominent zee que formation and areas of narrowing along the course of the superficial femoral artery are present w ith dense plaque formation and moderately severe stenosis at the level of the adductor canal. Calcifi ed plaque associated with moderate narrowing in the more distal popliteal artery. There is a patent t rifurcation. The anterior tibial occludes in the upper calf region. There is two vessel runoff consis ting of a posterior tibial and peroneal. On the left side, mild to moderate narrowing of the left common iliac artery. The stent is patent. th ere is dense plaque formation at the origin of the internal iliac artery. External iliac artery is pa tent without significant narrowing until the more distal aspect when dense plaque is associated with greater than 50% narrowing. The common femoral shows no significant stenosis. There is moderate stenosis and calcified plaque for mation in the origin of the superficial femoral artery. The profunda femoral artery is patent. Plaque formation and areas of narrowing is seen along the course of the superficial femoral artery or signi ficant stenosis appears to be near the adductor canal. Dense calcified plaque and moderate narrowing of the popliteal artery are present. Changes are particularly pronounced in the distal popliteal. The re is a patent trifurcation and there appears to be three vessel runoff. IMPRESSION: Aortoiliac stent. The stent is patent. The AP dimension of the infrarenal aorta is small. Presence of calcified plaque makes it difficult to assess stenosis but there are multilevel areas of stenosis in volving the right and left lower extremities as discussed above. There is two vessel runoff on the ri ght and three vessel runoff on the left. POS: JENNY
== END 2020-07-28 12:59 | disposition home or self-care (01) ==
LOC: BICCT 12:58
PROVIDERS: ATTEND Internal Medicine Cardiovascular Disease
DX: I70.208 Unspecified atherosclerosis of native arteries of extremities, other extremity (principal)
CPT/HCPCS: 75635; Q9967

== ENCOUNTER 2021-03-04 08:38 | Outpatient (CLI) | payer MEDICARE | END 2021-03-04 08:39 | disposition home or self-care (01) | LOC: BICCT 08:38 | PROVIDERS: ATTEND Internal Medicine Medical Oncology | DX: C85.90 Non-Hodgkin lymphoma, unspecified, unspecified site (principal); I70.0 Atherosclerosis of aorta; I70.8 Atherosclerosis of other arteries; K57.30 Diverticulosis of large intestine without perforation or abscess without bleeding | CPT/HCPCS: 71260; 74177 ==

== ENCOUNTER 2021-12-13 08:33 | Outpatient (CLI) | payer MEDICARE ==
[~2021-12-13 08:33] MED LIST changes: +ISOVUE-370 76%-LOCM 1 ML ONE; -Iopamidol-370 76% 500 ML 1 ML ONE
== END 2021-12-13 08:34 | disposition home or self-care (01) ==
LOC: BICCT 08:33
PROVIDERS: ATTEND Internal Medicine Medical Oncology
DX: C88.0 Waldenstrom macroglobulinemia (principal); R59.9 Enlarged lymph nodes, unspecified; K76.0 Fatty (change of) liver, not elsewhere classified; K57.30 Diverticulosis of large intestine without perforation or abscess without bleeding; N20.0 Calculus of kidney
CPT/HCPCS: 71260; 74177; 82565; Q9966

== ENCOUNTER 2022-08-16 09:25 | Outpatient (CLI) | payer MEDICARE | END 2022-08-16 09:26 | disposition home or self-care (01) | LOC: RAD 09:25 | PROVIDERS: ATTEND Internal Medicine Critical Care Medicine | DX: R06.00 Dyspnea, unspecified (principal) | CPT/HCPCS: 36415; 71046; 80048; 80061; 80076; 82607; 82728; 82746; 83036; 83540; 83550; 84439; 84443; 85025; G0103 ==

== ENCOUNTER 2023-03-28 09:41 | Outpatient (CLI) | payer MEDICARE ==
[2023-03-28] MEDS ORDERED: Iopamidol 370 76% 100 ML VIAL ONE (15:24)
== END 2023-03-28 09:42 | disposition home or self-care (01) ==
LOC: BICCT 09:41
PROVIDERS: ATTEND Thoracic Surgery (Cardiothoracic Vascular Surgery)
DX: I25.111 Atherosclerotic heart disease of native coronary artery with angina pectoris with documented spasm (principal); I70.213 Atherosclerosis of native arteries of extremities with intermittent claudication, bilateral legs
CPT/HCPCS: 75635; 82565; Q9967

== ENCOUNTER 2023-09-15 09:23 | Outpatient (CLI) | payer MEDICARE | END 2023-09-15 09:24 | disposition home or self-care (01) | LOC: RAD 09:23 | PROVIDERS: ATTEND Internal Medicine Critical Care Medicine | DX: R06.00 Dyspnea, unspecified (principal) | CPT/HCPCS: 71046 ==

== ENCOUNTER 2024-07-06 16:35 | Inpatient (IN) | payer MEDICARE ==
[~2024-07-06 16:35] MED LIST changes: -ISOVUE-370 76%-LOCM 1 ML ONE; +Iopamidol-370 76% 500 ML MDV (1 ML CHARGE) ONE
[2024-07-06 17:02] LABS: #Basophils 0.04 10x3/uL (0.0-0.2); %Basophils 0.2 % (0.0-1.0); %Eosinophils 0.2 % (0.0-10.0); %Lymphocytes 15.3 % (21.0-51.0); %Monocytes 8.5 % (0.0-10.0); %Neutrophils 74.7 % (42.0-75.0); Hematocrit 36.9 % (42.0-52.0); Hemoglobin 12.4 g/dL (14.0-18.0); Mean Corpuscular HGB CONC 33.6 g/dL (32.0-36.0); Mean Corpuscular Hemoglobin 31.5 pg (27.0-31.0); Mean Corpuscular Volume 93.7 fL (78.0-98.0); Mean Platelet Volume 9.2 fL (7.4-10.4); Platelet Count 219 10x3/uL (130-400); RBC Distribution Width 13.7 % (11.5-14.5); Red Blood Cell (RBC) Count 3.94 mill/uL (4.70-6.10)
[2024-07-06 17:25] LABS: ALT (SGPT) 25 U/L (8-55); AST (SGOT) 23 U/L (5-34); Albumin 3.8 g/dL (3.4-4.8); Alkaline Phosphatase 71 U/L (40-110); Anion Gap 14 mmol/L (10-20); BUN (Urea Nitrogen) 20 mg/dL (8.4-25.7); Calc. Creatinine Clearance 0 mL/min (70-130); Carbon Dioxide 30 mmol/L (23-31); Chloride 99 mmol/L (98-107); Estimated GFR 68; Globulin 4.3 g/dL (2.4-3.5); Glucose 135 mg/dL (83-110); Potassium 3.3 mmol/L (3.5-5.1); Protein, Total 8.1 g/dL (5.8-8.1); Sodium 140 mmol/L (136-145)
[2024-07-06 17:28] LABS: Troponin I 0.083 ng/mL (< 0.028)
[2024-07-06] MEDS ORDERED: hydrALAZINE 20 MG/ML VIAL ONE (18:19)
[2024-07-06] MEDS ORDERED: Ipratropium/Albuterol 3 ML NEB ONE (18:19)
[2024-07-06] MEDS ORDERED: Albuterol 2.5 MG (0.5 mL) NEB ONE (18:23)
[2024-07-06] MEDS ORDERED: Ondansetron PF 4 MG/2 ML Vial ONE (18:57)
[2024-07-06] MEDS ORDERED: niCARdipine 25 MG/10 ML SDV ONE (19:29)
[2024-07-06] MEDS ORDERED: LORazepam 2 MG/ML SYR.(CARPUJECT) ONE (19:41)
[2024-07-06] MEDS ORDERED: Potassium Chloride 20 MEQ (100 mL) BAG ONE (19:45)
[2024-07-06] MEDS ORDERED: Furosemide 40 MG (4 mL) VIAL ONE (19:45)
[2024-07-06] MEDS ORDERED: Ipratropium/Albuterol 3 ML NEB NEB PRN (20:10)
[2024-07-06] MEDS ORDERED: Labetalol HCl 100 MG/20 ML VIAL SLOW IVP PRN (20:14)
[2024-07-06] MEDS ORDERED: cefTRIAXone\\ROCEPHIN 1 GM in Sodium Chloride 0.9% 100 ML IVPB SCH (20:30)
[2024-07-06] MEDS ORDERED: Dextrose 50% Abboject 50 ML SYRINGE SLOW IVP PRN (20:55)
[2024-07-06] MEDS ORDERED: Dextrose 5% in Water 1,000 ML IV PRN (20:55)
[2024-07-06] MEDS ORDERED: Glucagon 1 MG/ML KIT IM PRN (20:55)
[2024-07-06] MEDS ORDERED: Insulin Lispro 100 UNIT/ML 10 ML VIAL SC PRN ×2 (20:55)
[2024-07-06 22:12] LABS: Base Excess 2.4 mEq/L (-2.0 to +3.0); Calcium, Ionized (venous) 1.03 mmol/L (1.16-1.32); Chloride (VBG) 98 mmol/L (98-106); Hematocrit-VBG 37 % (42.0-52.0); Hemoglobin (Hb) 12.6 g/dL (12.6-17.4); Potassium (VBG) 3.56 mmol/L (3.70-5.30); Sodium 138 mmol/L (133-146); pH (venous) 7.469 (7.32-7.43)
[2024-07-06 22:28] LABS: Magnesium 1.7 mg/dL (1.6-2.6)
[2024-07-06 22:41] VITALS: BMI 37.7
[2024-07-06] MEDS: Ipratropium/Albuterol 3 ML NEB NEB SCH (22:46)
[2024-07-06] MEDS: Doxycycline 100 MG in Sodium Chloride 0.9% 100 ML IVPB SCH ×2 (23:19→23:30)
[2024-07-06] MEDS: Piperacillin/Tazobactam 3.375 GM in Sodium Chloride 0.9% 100 ML IVPB SCH (23:29)
[2024-07-06] MEDS: Potassium Chloride 20 MEQ TAB PO SCH (23:29)
[2024-07-06] MEDS: guaiFENesin ER 600 MG TAB PO SCH (23:29)
[2024-07-06] MEDS: Magnesium 2 GM/50 ML(in water) 2 GM in Premix 1 BAG IVPB SCH (23:30)
[2024-07-06 23:52] LABS: Influenza A by NAA Not Detected (NotDetected); Influenza B by NAA Not Detected (NotDetected); SARS-CoV-2 NAA Rapid Test Not Detected (NotDetected)
[2024-07-07 00:48] LABS: Legionella Urinary Ag Negative (Negative); Strep pneumo Urine Ag NEGATIVE (NEGATIVE)
[2024-07-07] MEDS ORDERED: Ondansetron ODT 4 MG TAB PO PRN (01:00)
[2024-07-07] MEDS ORDERED: Ondansetron PF 4 MG/2 ML Vial IVP PRN (01:00)
[2024-07-07] MEDS: Melatonin 3 MG TAB PO PRN (01:41)
[2024-07-07] MEDS: Piperacillin/Tazobactam 3.375 GM in Sodium Chloride 0.9% 100 ML IVPB SCH (03:38)
[2024-07-07 03:43] LABS: #Basophils Less than 0.03 10x3/uL (0.0-0.2); #Eosinophils Less than 0.03 10x3/uL (0.0-0.7); %Basophils 0.1 % (0.0-1.0); %Eosinophils 0.1 % (0.0-10.0); %Lymphocytes 13.1 % (21.0-51.0); %Neutrophils 78.8 % (42.0-75.0); Hematocrit 36.3 % (42.0-52.0); Mean Corpuscular HGB CONC 33.1 g/dL (32.0-36.0); Mean Corpuscular Volume 93.8 fL (78.0-98.0); Mean Platelet Volume 9.6 fL (7.4-10.4); Platelet Count 187 10x3/uL (130-400); RBC Distribution Width 14.1 % (11.5-14.5); Red Blood Cell (RBC) Count 3.87 mill/uL (4.70-6.10)
[2024-07-07 03:54] LABS: Hemoglobin A1c 6.4 % (4.0-6.0)
[2024-07-07 03:59] LABS: Anion Gap 14 mmol/L (10-20); BUN (Urea Nitrogen) 22 mg/dL (8.4-25.7); Calc. Creatinine Clearance 78 mL/min (70-130); Calcium 8.5 mg/dL (7.8-10.44); Carbon Dioxide 28 mmol/L (23-31); Chloride 100 mmol/L (98-107); Cholesterol 70 mg/dl (< 200 Desired); Estimated GFR 57; Glucose 172 mg/dL (83-110); HDL Cholesterol 35 mg/dL (>60 Neg Risk); LDL Cholesterol, Calculated 15 mg/dL; Potassium 3.2 mmol/L (3.5-5.1); Sodium 139 mmol/L (136-145); Triglycerides 102 mg/dL (Less than 150)
[2024-07-07] MEDS: Furosemide 40 MG (4 mL) VIAL SLOW IVP SCH (06:21)
[2024-07-07] MEDS: Aspirin 325 MG TAB PO SCH (08:48)
[2024-07-07] MEDS ORDERED: Aspirin 81 mg Enteric Coated Tablet PO SCH (09:00)
[2024-07-07] MEDS ORDERED: Electrolyte Replacement Protocol 1 EACH FS SCH (10:15)
[2024-07-07] MEDS ORDERED: Electrolyte Replacement Protocol FS PRN (10:30)
[2024-07-07] MEDS: Potassium Chloride 20 MEQ TAB PO SCH (12:20)
[2024-07-07] MEDS: Icosapent Ethyl 1 GM CAPSULE PO SCH (15:32)
[2024-07-07] MEDS: Losartan 25 MG TAB PO SCH (15:33)
[2024-07-07] MEDS: Clopidogrel Bisulfate 75 MG TAB PO SCH (15:33)
[2024-07-07] MEDS: hydrALAZINE 25 MG TAB PO SCH (15:33)
[2024-07-07] MEDS: Benzonatate 100 MG CAP PO PRN (18:07)
[2024-07-07] MEDS: Acetaminophen 325 MG TAB PO PRN (18:07)
[2024-07-07] MEDS: Ranolazine ER 500 MG TAB PO SCH (21:00)
[2024-07-07] MEDS: Metoprolol Tartrate 50 MG TAB PO SCH (21:00)
[2024-07-07 21:05] LABS: Potassium 4.2 mmol/L (3.5-5.1)
[2024-07-07] MEDS: Artificial Tear Ophth Sol 15 ML BOT EA EYE SCH (21:24)
[2024-07-08 04:51] LABS: #Basophils 0.03 10x3/uL (0.0-0.2); %Basophils 0.2 % (0.0-1.0); %Eosinophils 0.3 % (0.0-10.0); %Lymphocytes 10.1 % (21.0-51.0); %Monocytes 5.9 % (0.0-10.0); %Neutrophils 82.7 % (42.0-75.0); Hematocrit 35.9 % (42.0-52.0); Hemoglobin 12.2 g/dL (14.0-18.0); Mean Corpuscular Hemoglobin 31.6 pg (27.0-31.0); Mean Platelet Volume 9.8 fL (7.4-10.4); Platelet Count 204 10x3/uL (130-400); RBC Distribution Width 14.2 % (11.5-14.5); Red Blood Cell (RBC) Count 3.86 mill/uL (4.70-6.10)
[2024-07-08 05:06] LABS: ALT (SGPT) 25 U/L (8-55); AST (SGOT) 34 U/L (5-34); Albumin 3.2 g/dL (3.4-4.8); Alkaline Phosphatase 67 U/L (40-110); Anion Gap 16 mmol/L (10-20); BUN (Urea Nitrogen) 30 mg/dL (8.4-25.7); Bilirubin, Total 1.1 mg/dL (0.2-1.2); Calc. Creatinine Clearance 64 mL/min (70-130); Calcium 8.6 mg/dL (7.8-10.44); Carbon Dioxide 26 mmol/L (23-31); Chloride 99 mmol/L (98-107); Estimated GFR 45; Globulin 4.3 g/dL (2.4-3.5); Glucose 135 mg/dL (83-110); Magnesium 2.1 mg/dL (1.6-2.6); Potassium 3.5 mmol/L (3.5-5.1); Protein, Total 7.5 g/dL (5.8-8.1); Sodium 137 mmol/L (136-145)
[2024-07-08] MEDS: Multivitamin w/Zinc Stress 1 TAB PO SCH (09:31)
[2024-07-08] MEDS: Aspirin 81 mg Enteric Coated Tablet PO SCH (09:31)
[2024-07-08] MEDS: Isosorbide Mononitrate 60 MG ER.TAB PO SCH (09:31)
[2024-07-08] MEDS: Metoprolol Tartrate 100 MG TAB PO SCH (09:31)
[2024-07-08] MEDS: Potassium Chloride 20 MEQ TAB PO SCH (09:32)
[2024-07-08] MEDS ORDERED: Lorazepam 2 MG/ML VIAL SLOW IVP PRN (10:53)
[2024-07-08] MEDS: Ipratropium/Albuterol 3 ML NEB NEB SCH (13:59)
[2024-07-09 04:30] LABS: #Basophils Less than 0.03 10x3/uL (0.0-0.2); %Basophils 0.2 % (0.0-1.0); %Eosinophils 1.2 % (0.0-10.0); %Lymphocytes 19.6 % (21.0-51.0); %Monocytes 6.2 % (0.0-10.0); %Neutrophils 71.9 % (42.0-75.0); Hematocrit 33.3 % (42.0-52.0); Mean Corpuscular Hemoglobin 31.5 pg (27.0-31.0); Mean Corpuscular Volume 95.4 fL (78.0-98.0); Mean Platelet Volume 9.6 fL (7.4-10.4); Platelet Count 196 10x3/uL (130-400); RBC Distribution Width 14.3 % (11.5-14.5); Red Blood Cell (RBC) Count 3.49 mill/uL (4.70-6.10)
[2024-07-09 04:56] LABS: ALT (SGPT) 28 U/L (8-55); AST (SGOT) 30 U/L (5-34); Albumin 2.9 g/dL (3.4-4.8); Alkaline Phosphatase 58 U/L (40-110); Anion Gap 12 mmol/L (10-20); BUN (Urea Nitrogen) 34 mg/dL (8.4-25.7); Bilirubin, Total 0.8 mg/dL (0.2-1.2); Calc. Creatinine Clearance 75 mL/min (70-130); Calcium 8.7 mg/dL (7.8-10.44); Carbon Dioxide 27 mmol/L (23-31); Chloride 102 mmol/L (98-107); Estimated GFR 54; Globulin 4.1 g/dL (2.4-3.5); Glucose 118 mg/dL (83-110); Potassium 3.3 mmol/L (3.5-5.1); Sodium 138 mmol/L (136-145)
[2024-07-09] MEDS: Furosemide 40 MG (4 mL) VIAL SLOW IVP SCH (09:07)
[2024-07-09] MEDS: Potassium Chloride 20 MEQ TAB PO SCH (09:09)
[2024-07-09] MEDS ORDERED: HYDROcodone/Chlorphen Polis 5 ML UDCUP PO PRN (10:10)
[2024-07-10] MEDS: guaiFENesin/Codeine 200 mg/20 mg 10 ml Cup PO PRN (00:20)
[2024-07-10 04:42] LABS: #Basophils Less than 0.03 10x3/uL (0.0-0.2); %Basophils 0.2 % (0.0-1.0); %Eosinophils 1.3 % (0.0-10.0); %Lymphocytes 22.5 % (21.0-51.0); %Monocytes 8.5 % (0.0-10.0); %Neutrophils 66.9 % (42.0-75.0); Hematocrit 33.7 % (42.0-52.0); Hemoglobin 11.1 g/dL (14.0-18.0); Mean Corpuscular HGB CONC 32.9 g/dL (32.0-36.0); Mean Corpuscular Hemoglobin 31.3 pg (27.0-31.0); Mean Corpuscular Volume 94.9 fL (78.0-98.0); Mean Platelet Volume 9.7 fL (7.4-10.4); Platelet Count 194 10x3/uL (130-400); RBC Distribution Width 14.1 % (11.5-14.5); Red Blood Cell (RBC) Count 3.55 mill/uL (4.70-6.10)
[2024-07-10 05:26] LABS: ALT (SGPT) 33 U/L (8-55); AST (SGOT) 33 U/L (5-34); Alkaline Phosphatase 64 U/L (40-110); Anion Gap 11 mmol/L (10-20); BUN (Urea Nitrogen) 34 mg/dL (8.4-25.7); Bilirubin, Total 0.7 mg/dL (0.2-1.2); Calc. Creatinine Clearance 76 mL/min (70-130); Calcium 8.9 mg/dL (7.8-10.44); Carbon Dioxide 27 mmol/L (23-31); Chloride 103 mmol/L (98-107); Estimated GFR 55; Globulin 4.2 g/dL (2.4-3.5); Glucose 126 mg/dL (83-110); Potassium 3.7 mmol/L (3.5-5.1); Protein, Total 7.2 g/dL (5.8-8.1); Sodium 137 mmol/L (136-145)
[2024-07-10] MEDS: guaiFENesin ER 600 MG TAB PO SCH (08:55)
[2024-07-10] MEDS: methylPREDNISolone Sod Succ 40 MG VIAL IVP SCH (10:59)
[2024-07-10] MEDS: Ipratropium/Albuterol 3 ML NEB EZPAP SCH (14:19)
[2024-07-10] MEDS: cefTRIAXone\\ROCEPHIN 2 GM in Sodium Chloride 0.9% 100 ML IVPB SCH (21:29)
[2024-07-10] MEDS: hydrALAZINE 20 MG/ML VIAL SLOW IVP PRN (21:57)
[2024-07-11 05:20] LABS: Anion Gap 15 mmol/L (10-20); BUN (Urea Nitrogen) 33 mg/dL (8.4-25.7); Calc. Creatinine Clearance 77 mL/min (70-130); Carbon Dioxide 23 mmol/L (23-31); Chloride 103 mmol/L (98-107); Estimated GFR 56; Glucose 127 mg/dL (83-110); Potassium 3.9 mmol/L (3.5-5.1); Sodium 137 mmol/L (136-145)
[2024-07-11 07:24] LABS: #Basophils Less than 0.03 10x3/uL (0.0-0.2); #Eosinophils Less than 0.03 10x3/uL (0.0-0.7); %Basophils 0.1 % (0.0-1.0); %Eosinophils 0.2 % (0.0-10.0); %Lymphocytes 19.8 % (21.0-51.0); %Monocytes 8.5 % (0.0-10.0); %Neutrophils 70.6 % (42.0-75.0); Hematocrit 36.1 % (42.0-52.0); Hemoglobin 12.3 g/dL (14.0-18.0); Mean Corpuscular HGB CONC 34.1 g/dL (32.0-36.0); Mean Corpuscular Hemoglobin 32.5 pg (27.0-31.0); Mean Corpuscular Volume 95.5 fL (78.0-98.0); Platelet Count 211 10x3/uL (130-400); RBC Distribution Width 14.4 % (11.5-14.5); Red Blood Cell (RBC) Count 3.78 mill/uL (4.70-6.10)
[2024-07-11] MEDS: methylPREDNISolone Sod Succ 40 MG VIAL IVP SCH (08:29)
[2024-07-11] MEDS: Azithromycin 250 MG TAB PO SCH (08:30)
[2024-07-11] MEDS ORDERED: Carvedilol 6.25 MG TAB PO SCH (08:45)
[2024-07-11] MEDS: hydrALAZINE 25 MG TAB PO SCH (09:59)
[2024-07-11] MEDS: Carvedilol 6.25 MG TAB PO SCH (09:59)
[2024-07-11] MEDS: Amlodipine 10 MG TAB PO SCH (10:22)
[2024-07-11] MEDS: Carvedilol 25 MG TAB PO SCH (16:05)
[2024-07-11] MEDS ORDERED: Carvedilol 25 MG TAB PO SCH (17:00)
[2024-07-12 04:46] LABS: #Basophils Less than 0.03 10x3/uL (0.0-0.2); %Basophils 0.2 % (0.0-1.0); %Eosinophils 0.5 % (0.0-10.0); %Monocytes 7.7 % (0.0-10.0); %Neutrophils 63.8 % (42.0-75.0); Hematocrit 36.2 % (42.0-52.0); Hemoglobin 11.6 g/dL (14.0-18.0); Mean Corpuscular Hemoglobin 31.4 pg (27.0-31.0); Mean Corpuscular Volume 97.8 fL (78.0-98.0); Mean Platelet Volume 10.3 fL (7.4-10.4); Platelet Count 200 10x3/uL (130-400); RBC Distribution Width 14.4 % (11.5-14.5)
[2024-07-12 05:07] LABS: Anion Gap 12 mmol/L (10-20); BUN (Urea Nitrogen) 29 mg/dL (8.4-25.7); Calc. Creatinine Clearance 74 mL/min (70-130); Calcium 8.9 mg/dL (7.8-10.44); Carbon Dioxide 24 mmol/L (23-31); Chloride 105 mmol/L (98-107); Estimated GFR 54; Glucose 118 mg/dL (83-110); Potassium 3.9 mmol/L (3.5-5.1); Sodium 137 mmol/L (136-145)
[2024-07-12] MEDS: FLU (Fluad Triv) TS24-25 (65UP)/MF59C/PF 45 MCG/0.5 ML Syringe IM ONE (08:04)
[2024-07-12 12:24] VITALS: BP 162/77; TEMP 97.6
== END 2024-07-12 12:43 | disposition home or self-care (01) | DRG 871 ==
LOC: ERS 16:35 → 2NO 20:54 → OBSVTOIN 20:55
PROVIDERS: ADMIT Internal Medicine; ATTEND Hospitalist
PROC: 3E03329 Introduction of Other Anti-infective into Peripheral Vein, Percutaneous Approach (ICD-10-PCS; principal; 2024-07-06)
PROC: 5A09357 Assistance with Respiratory Ventilation, Less than 24 Consecutive Hours, Continuous Positive Airway Pressure (ICD-10-PCS; 2024-07-07)
DX: A41.9 Sepsis, unspecified organism (principal); I50.31 Acute diastolic (congestive) heart failure; J69.0 Pneumonitis due to inhalation of food and vomit; J96.21 Acute and chronic respiratory failure with hypoxia; I5A Non-ischemic myocardial injury (non-traumatic); I69.854 Hemiplegia and hemiparesis following other cerebrovascular disease affecting left non-dominant side; G45.9 Transient cerebral ischemic attack, unspecified; I25.10 Atherosclerotic heart disease of native coronary artery without angina pectoris; E78.5 Hyperlipidemia, unspecified; E11.9 Type 2 diabetes mellitus without complications; Z88.8 Allergy status to other drugs, medicaments and biological substances; I48.91 Unspecified atrial fibrillation; Z95.1 Presence of aortocoronary bypass graft; Z95.0 Presence of cardiac pacemaker; Z98.890 Other specified postprocedural states; E87.70 Fluid overload, unspecified; E87.6 Hypokalemia; G47.33 Obstructive sleep apnea (adult) (pediatric); Z79.899 Other long term (current) drug therapy; Z79.84 Long term (current) use of oral hypoglycemic drugs; I11.0 Hypertensive heart disease with heart failure
CPT/HCPCS: 36415; 36416; 70450; 70551; 71045; 71275; 80048; 80053; 80061; 82805; 83036; 83735; 83880; 84484; 85025; 87040; 87449; 87899; 93005; 93306; 94640; 94660; 96374; 96375; J0360; J0696; J1940; J2060; J2405; J2543; J2919; J3475; J3480; J7611; J7620; Q9967